=== PATIENT | male | born 1965 | race African-American/Black ===

== ENCOUNTER 2017-07-03 19:50 | Emergency (ER) | payer MEDICAID, OTHER ==
[~2017-07-03] VITALS: Ht 182.9 cm; Wt 103.0 kg
[~2017-07-03 19:50] MED LIST: HYDR-523 PO
[2017-07-04] MEDS ORDERED: ASPIRIN 81MG TABLET PO ONE (00:30)
[2017-07-04] MEDS ORDERED: NITROGLYCERIN 0.4MG TABLET SL SL PRN (00:30)
[2017-07-04 00:44] LABS: BASOPHILS % 0.6 % (0.0-2.0); EOSINOPHILS % 4.2 % (0.0-5.0); HEMATOCRIT. 40.5 % (42.0-52.0); LYMPHOCYTES % 45.5 % (20.0-50.0); MEAN CORPUSCULAR HEMOGLOBIN 32.1 pg (28.0-32.0); MEAN CORPUSCULAR VOLUME 93.2 fL (80.0-94.0); MEAN PLATELET VOLUME 11.1 fl (7.4-10.4); MONOCYTES % 6.8 % (2.0-8.0); NEUTROPHILS % 42.9 % (40.0-76.0); PLATELET 110 x1000/uL (130-400); RED BLOOD CELL COUNT 4.35 mill/uL (4.7-6.1); RED CELL DISTRIBUTION WIDTH 13.5 % (11.6-14.6)
[2017-07-04 00:48] LABS: INR 1.1; PROTHROMBIN TIME 11.1 sec (9.4-11.6)
[2017-07-04 00:53] LABS: CHLORIDE 107 mEq/L (98-107)
[2017-07-04 01:00] LABS: TROPONIN I < 0.02 ng/mL (0.00-0.04)
[2017-07-04 05:10] VITALS: BP 118/76
== END 2017-07-04 05:10 | disposition home or self-care (01) ==
LOC: ER 20:46
DX: R07.2 Precordial pain (principal)
CPT/HCPCS: 36415; 71045; 80053; 83880; 84484; 85025; 85610; 93005; 99285; Z7610

== ENCOUNTER 2017-09-18 18:27 | Emergency (ER) | payer MEDICAID, OTHER ==
[~2017-09-18] VITALS: Ht 182.9 cm; Wt 95.5 kg
[2017-09-18] MEDS ORDERED: NAPR-679 PO (18:49)
[2017-09-18] MEDS ORDERED: IBUPROFEN 800MG TABLET PO ONE (21:30)
[2017-09-18] MEDS ORDERED: HYDROCODONE/ACETAMINOPHEN 5/325MG TABLET PO ONE (22:00)
[2017-09-18 22:10] VITALS: BP 150/75
== END 2017-09-18 22:16 | disposition home or self-care (01) ==
LOC: ER 20:28
DX: S30.0XXA Contusion of lower back and pelvis, initial encounter (principal); S20.229A Contusion of unspecified back wall of thorax, initial encounter; W22.8XXA Striking against or struck by other objects, initial encounter; Y93.89 Activity, other specified; Y92.89 Other specified places as the place of occurrence of the external cause; Y99.0 Civilian activity done for income or pay; H54.62 Unqualified visual loss, left eye, normal vision right eye
CPT/HCPCS: 72070; 99284